=== PATIENT | female | born 1960 | race Caucasian/White ===

== ENCOUNTER 2018-11-10 13:15 | Observation (INO) ==
[2018-11-10] MEDS ORDERED: Ipratropium/Albuterol Neb 3 ML IH ONE (13:27)
[2018-11-10] MEDS ORDERED: cefTRIAXone 1,000 MG in 0.9 % Sodium Chloride Mini Bag 100 ML IVPB ONE (14:00)
[2018-11-10] MEDS ORDERED: Azithromycin 500 MG in D5% in Water 250 ML IVPB ONE (14:00)
[2018-11-10 14:01] LABS: Basophils % 0.4 %; Eosinophils % 0.1 %; Hematocrit 48.5 % (35.3-44.9); Hemoglobin 12.7 g/dL (11.5-15.4); Immature Granulocytes % 2.7 % (0-4); Lymphocytes # 0.3 K/mcL (0.6-4.6); Lymphocytes % 3.6 %; Mean Corpuscular HGB Conc 26.2 g/dL (31.6-35.5); Mean Corpuscular Hemoglobin 19.6 pg (28.0-33.3); Mean Corpuscular Volume 74.7 fL (83.0-100.0); Monocytes # 0.5 K/mcL (0.0-1.3); Monocytes % 7.7 %; Platelet Count 128 K/mcL (140-400); Red Blood Count 6.49 M/mcL (3.82-4.97); Red Cell Distribution Width 21.8 % (11.5-14.5); Segmented Neutrophils % 85.5 %
--- NOTE | 2018-11-10 14:06 | Emergency Department Note ---
Disposition Clinical Impression: Acute exacerbation of chronic obstructive airways disease, Community acquired pneumonia Disposition: Admitted As Inpatient Condition: Fair Referrals: NONE,PCP [Primary Care Provider] - Forms: ED Satisfaction Letter Time of Disposition: 15:40 SOB HPI - General Chief Complaint: ED Shortness of Breath/Dyspnea Stated Complaint: sob Time Seen by Provider: 11/10/18 13:30 Source: patient, EMS Mode of arrival: ambulatory Limitations: no limitations Nursing Notes Reviewed: Yes Vital Signs Reviewed: Yes - History of Present Illness 58-year-old female who presents versus had increasing stress breath cough congestion she has had low-grade fever she had no apnea and no cyanosis she denies any diarrhea melena hematochezia hematemesis numbness tingling weakness recent E gain or weight lossoversite dr Fink Pt Subjective Complaint: shortness of breath Onset (ago): hour(s) Context: recent illness Severity: severe Consistency/Duration: constant Improves with: oxygen, bronchodilators Worsens with: exertion Known history of: COPD, recurrent pneumonia Associated symptoms: Reports: fever, cough, sputum production. Denies: chest pain, pain with inspiration, wheezing, orthopnea, lower extremity pain, polyuria, polydipsia, parasthesias, palpitations, hemoptysis, diaphoresis, nausea/vomiting, syncope, abdominal pain, rash, sense of impending doom Treatment prior to arrival: oxygen, bronchodilator, other (BiPap) Cough present: No Sputum production: No - Related Data Home Medications Medication Instructions Recorded Confirmed Levothyroxine [Synthroid] 100 mcg PO 0630 03/04/15 11/10/18 Albuterol Sulfate [Proair 2 puff PO Q6H PRN 07/21/15 11/10/18 Respiclick] Furosemide [Lasix] 20 mg PO DAILY 07/21/15 10/18/17 Lisinopril [Zestril] 10 mg PO DAILY 07/21/15 11/10/18 Metformin HCl [Glucophage] 1,000 mg PO BID 07/21/15 11/10/18 Multivit-Min/Iron Fum/Folic AC 1 each PO DAILY 07/21/15 11/10/18 [Yqezp-Mhncprz-Oarepvnm Tablet] Sertraline [Zoloft] 1.5 tab PO DAILY 07/21/15 11/10/18 Simvastatin [Zocor] 20 mg PO HS 07/21/15 11/10/18 SitaGLIPtin [Januvia] 100 mg PO DAILY 07/21/15 11/10/18 amLODIPine [Norvasc] 5 mg PO DAILY 07/21/15 10/18/17 ALPRAZolam [Xanax 1 MG Tablet] 1 mg PO TID 07/07/16 11/10/18 Previous Rx's Medication Instructions Recorded Oxybutynin [Ditropan] 5 mg PO QID #120 tablet 07/07/16 Desitin (Zinc Oxide) [Desitin] 1 appl TP Q4H PRN #1 tube 11/10/16 Ferrous Sulfate [Iron] 325 mg PO DAILY #30 tablet 06/10/17 Ascorbic Acid [C-500] 500 mg PO DAILY #30 tablet 08/20/17 Loperamide [Imodium] 4 mg PO BID #60 capsule 12/12/17 Allergies Allergy/AdvReac Type Severity Reaction Status Date / Time No Known Allergies Allergy Verified 04/04/17 14:49 All systems ED: reviewed and negative except as stated. Review of Systems: As Per HPI Constitutional: Reports: fever. Denies: chills, weakness Eyes: Denies: eye pain, eye discharge ENT ED: Denies: ear pain, throat pain Cardiovascular: Reports: dyspnea on exertion. Denies: chest pain, palpitations Respiratory: Reports: cough, dyspnea, wheezes, sputum production Gastrointestinal: Denies: abdominal pain, nausea Genitourinary: Denies: urgency, dysuria, frequency Musculoskeletal: Denies: back pain, neck pain Integumentary: Denies: rash Neurological: Denies: headache Psychiatric: Denies: anxiety Endocrine: Denies: fatigue Hematological/Lymphatic: Denies: easy bleeding Allergic/Immunologic: Denies: facial swelling Past Medical History - Past Medical History Attestation: Yes The following information was validated with the patient. Source: patient, old records reviewed, nursing notes reviewed Medical history: Reports: arthritis, asthma, cancer, CHF, COPD, diabetes, GERD, hyperlipidemia, hypertension, kidney stones, migraine, thyroid disease, other Surgical history: Reports: hysterectomy Psychiatric history: Reports: anxiety - Social History Smoking Status: Current every day smoker Smokeless Tobacco Status: No Alcohol use: Reports: none Drug use: Reports: none Physical Exam - General Limitations: no limitations General appearance: alert, in no apparent distress, anxious, obese - Head Head exam: atraumatic, normocephalic, normal inspection - Eye Eye exam: Present: normal appearance, PERRL, EOMI - ENT ENT exam: normal exam, normal oropharynx, mucous membranes moist, TM's normal bilaterally, normal external ear exam - Neck Neck exam: Present: normal inspection, full ROM, trachea midline - Chest Chest inspection: Present: normal inspection, symmetric chest wall rise - Respiratory Respiratory exam: Present: prolonged expiratory phase, other (Rhonci and no rales) - Cardiovascular Cardiovascular exam: Present: regular rate, normal rhythm, normal heart sounds - Abdominal Exam Abdominal exam: Present: soft, Non-Tender, normal bowel sounds. Absent: mass, pulsatile mass - Extremities Exam Extremities exam: Present: normal inspection, full ROM, normal capillary refill. Absent: tenderness, pedal edema, joint swelling, calf tenderness - Expanded Lower Extremity Exam Neurovascular/Tendon exam: Present: normal capillary refill, normal fine/light touch Gait: observed and normal - Back Exam Back exam: Present: normal inspection, full ROM. Absent: muscle spasm - Neurological Exam Neurological exam: Present: alert, oriented X3, CN II-XII intact, normal gait - Psychiatric Psychiatric exam: Present: normal affect, normal mood - Skin Skin exam: Present: warm, dry, intact, normal color Course Course Narrative: Patient seen and examined patient was maintained on BiPAP given multiple aerosol treatments did show some improvement spoke with Dr. Arevalo will have her admitted transfer to [facility] patient was septic by criteria but not septic by laboratory data patient be transferred to [facility] on IV antibiotics Vital Signs Temperature 97.4 F L 11/10/18 13:26 Pulse Rate 92 11/10/18 13:26 Respiratory Rate 26 11/10/18 13:26 Blood Pressure 122/71 11/10/18 13:26 O2 Sat by Pulse Oximetry 97 11/10/18 13:26 Temperature 97.4 F L 11/10/18 13:35 Pulse Rate 85 11/10/18 15:31 Respiratory Rate 23 11/10/18 15:31 Blood Pressure 104/67 11/10/18 15:31 O2 Sat by Pulse Oximetry 88 11/10/18 15:31 Oxygen Delivery Oxygen Delivery Simple Mask Shortness of Breath/Dyspnea - Differential Diagnosis Likely: acute exacerbation of chronic obstructive airways disease, pneumonia, pulmonary embolism - Medical Records Medical records reviewed: Yes I reviewed the patient's medical records. - Lab Data Lab results reviewed: Yes I reviewed the patient's lab results. Result diagrams: 11/10/18 13:48 11/10/18 13:48 Lab Results 11/10/18 11/10/18 11/10/18 Range/Units 13:48 13:48 13:48 WBC 7.0 (4.3-11.1) K/mcL RBC 6.49 H (3.82-4.97) M/mcL Hgb 12.7 (11.5-15.4) g/dL Hct 48.5 H (35.3-44.9) % MCV 74.7 L (83.0-100.0) fL MCH 19.6 L (28.0-33.3) pg MCHC 26.2 L (31.6-35.5) g/dL RDW 21.8 H (11.5-14.5) % Plt Count 128 L (140-400) K/mcL Immature Gran % 2.7 (0-4) % Seg Neutrophils % 85.5 % Lymphocytes % 3.6 % Monocytes % 7.7 % Eosinophils % 0.1 % Basophils % 0.4 % Neutrophils # 6.0 (1.6-8.9) K/mcL Lymphocytes # 0.3 L (0.6-4.6) K/mcL Monocytes # 0.5 (0.0-1.3) K/mcL Eosinophils # 0.0 (0.0-0.6) K/mcL Basophils # 0.0 (0.0-0.2) K/mcL Nucleated RBCs/100 WBC 1.0 H (0) /100 WBC Platelet Estimate Normal (Normal) Polychromasia 1+ A (Not Present) Hypochromasia Present A (Not Present) Anisocytosis 1+ A (Not Present) Microcytosis Present A (Not Present) Sodium 137 (136-145) mEq/L Potassium 4.8 (3.5-5.1) mEq/L Chloride 96 L (98-107) mEq/L Carbon Dioxide 38 H (23-29) mEq/L BUN 25 H (6-20) mg/dL Creatinine 0.76 (0.60-1.20) mg/dL Est GFR ( Amer) > 60 (> 60) Est GFR (Non-Af Amer) > 60 (> 60) BUN/Creatinine Ratio 33 H (6-26) Glucose 258 H (70-105) mg/dL Calculated Osmolality 297 (280-300) Lactic Acid 0.8 (0.5-2.2) mmol/L Calcium 8.8 (8.6-10.3) mg/dL Troponin I 0.03 (< 0.04) ng/mL B-Natriuretic Peptide (Less than 100) pg/mL 11/10/18 Range/Units 13:48 WBC (4.3-11.1) K/mcL RBC (3.82-4.97) M/mcL Hgb (11.5-15.4) g/dL Hct (35.3-44.9) % MCV (83.0-100.0) fL MCH (28.0-33.3) pg MCHC (31.6-35.5) g/dL RDW (11.5-14.5) % Plt Count (140-400) K/mcL Immature Gran % (0-4) % Seg Neutrophils % % Lymphocytes % % Monocytes % % Eosinophils % % Basophils % % Neutrophils # (1.6-8.9) K/mcL Lymphocytes # (0.6-4.6) K/mcL Monocytes # (0.0-1.3) K/mcL Eosinophils # (0.0-0.6) K/mcL Basophils # (0.0-0.2) K/mcL Nucleated RBCs/100 WBC (0) /100 WBC Platelet Estimate (Normal) Polychromasia (Not Present) Hypochromasia (Not Present) Anisocytosis (Not Present) Microcytosis (Not Present) Sodium (136-145) mEq/L Potassium (3.5-5.1) mEq/L Chloride (98-107) mEq/L Carbon Dioxide (23-29) mEq/L BUN (6-20) mg/dL Creatinine (0.60-1.20) mg/dL Est GFR ( Amer) (> 60) Est GFR (Non-Af Amer) (> 60) BUN/Creatinine Ratio (6-26) Glucose (70-105) mg/dL Calculated Osmolality (280-300) Lactic Acid (0.5-2.2) mmol/L Calcium (8.6-10.3) mg/dL Troponin I (< 0.04) ng/mL B-Natriuretic Peptide 185 H (Less than 100) pg/mL - Radiology Data Radiology results reviewed: Yes I reviewed the patient's radiology results. ITS Impressions Chest X-Ray 11/10/18 13:28 IMPRESSION: Focal infiltrate right lung base. D/ / 11/10/2018 13:54:44 Jhonatan Portillo MD / bcarter Interpreting Provider: Jhonatan Portillo MD - EKG Data EKG attestation: Yes I reviewed and interpreted this EKG. EKG results narrative: Sinus rhythm rate 87 LA 152 QRS 80 QT 353 access 143 Critical Care Time Critical Care Time: No Sepsis Event Note - Evaluation Sepsis Screen: No Definite Risk Current Stage of Suspected Sepsis: ruled out Reason for ruling out sepsis: Lactic is normal white count is normal Possible Source of Sepsis: pulmonary - Focused Exam Date of Encounter: 11/10/18 Time of Encounter: 15:05 Vital Signs: Vital Signs Temp Pulse Resp BP Pulse Ox 11/10/18 15:31 85 23 104/67 88 11/10/18 15:02 84 24 106/62 93 11/10/18 14:29 89 21 92 11/10/18 14:14 18 93 11/10/18 13:56 87 26 110/59 98 11/10/18 13:35 97.4 F L 92 26 122/71 10 11/10/18 13:32 10 11/10/18 13:26 97.4 F L 92 26 122/71 97 Respiratory Exam: Present: rhonchi Cardiovascular Exam: Present: RRR Capillary Refill: < 2 seconds Peripheral Pulse Strength: 3+ normal Peripheral Pulse Location: Radial Skin Exam: normal turgor - Bedside Monitoring Bedside Ultrasound Performed: No Passive Leg raise/fluid bolus: not performed
[2018-11-10 14:19] LABS: BUN/Creatinine Ratio 33 (6-26); Blood Urea Nitrogen 25 mg/dL (6-20); Calcium 8.8 mg/dL (8.6-10.3); Carbon Dioxide 38 mEq/L (23-29); Chloride 96 mEq/L (98-107); Glucose 258 mg/dL (70-105); Osmolality,Calculated 297 (280-300); Potassium 4.8 mEq/L (3.5-5.1); Sodium 137 mEq/L (136-145); eGFR For Non-African Americans > 60 (> 60)
[2018-11-10 14:20] LABS: Troponin I 0.03 ng/mL (< 0.04)
[2018-11-10 14:51] LABS: Anisocytosis 1+ (Not Present); Hypochromasia Present (Not Present); Platelet Estimate Normal (Normal); Polychromasia 1+ (Not Present)
[2018-11-10 14:52] LABS: Microcytosis Present (Not Present)
[2018-11-10] MEDS ORDERED: ALPRAZolam 0.5 MG TABLET PO STA (15:12)
[2018-11-10] MEDS ORDERED: (Albuterol Sulfate [Proair Respiclick] 2 PUFF) PO PRN (19:34)
[2018-11-10] MEDS ORDERED: Naloxone 0.4 MG/ML INJ IVP PRN (19:34)
[2018-11-10] MEDS ORDERED: Desitin (Zinc Oxide) 56 GM TUBE TP PRN (19:34)
[2018-11-10] MEDS: *HR* Metformin 500 MG TABLET PO SCH (21:09)
[2018-11-10] MEDS: ALPRAZolam 1 MG TABLET PO SCH (21:09)
[2018-11-11] MEDS: Albuterol 2.5 MG/3 ML NEBULIZER IH PRN ×2 (03:40→13:36)
[2018-11-11] MEDS: predniSONE 20 MG TABLET PO SCH ×2 (03:54→17:48)
[2018-11-11 05:27] LABS: Basophils # 0.1 K/mcL (0.0-0.2); Basophils % 0.9 %; Eosinophils % 0.5 %; Hematocrit 49.6 % (35.3-44.9); Hemoglobin 12.5 g/dL (11.5-15.4); Immature Granulocytes % 2.1 % (0-4); Lymphocytes # 1.1 K/mcL (0.6-4.6); Lymphocytes % 16.3 %; Mean Corpuscular HGB Conc 25.2 g/dL (31.6-35.5); Mean Corpuscular Hemoglobin 19.5 pg (28.0-33.3); Mean Corpuscular Volume 77.4 fL (83.0-100.0); Monocytes # 0.9 K/mcL (0.0-1.3); Monocytes % 13.6 %; Neutrophils # 4.4 K/mcL (1.6-8.9); Nucleated Red Blood Cells 0.8 /100 WBC (0); Platelet Count 108 K/mcL (140-400); Red Blood Count 6.41 M/mcL (3.82-4.97); Red Cell Distribution Width 21.7 % (11.5-14.5); Segmented Neutrophils % 66.6 %
[2018-11-11 06:00] LABS: BUN/Creatinine Ratio 33 (6-26); Blood Urea Nitrogen 20 mg/dL (6-20); Calcium 8.9 mg/dL (8.6-10.3); Carbon Dioxide 34 mEq/L (23-29); Chloride 96 mEq/L (98-107); Glucose 163 mg/dL (70-105); Osmolality,Calculated 294 (280-300); Potassium 4.7 mEq/L (3.5-5.1); Sodium 139 mEq/L (136-145); eGFR For Non-African Americans > 60 (> 60)
[2018-11-11 06:47] LABS: Anisocytosis 1+ (Not Present)
[2018-11-11 06:48] LABS: Hypochromasia Present (Not Present); Platelet Estimate Slight Decrease (Normal)
[2018-11-11] MEDS: Ascorbic Acid 500 MG TABLET PO SCH (08:38)
[2018-11-11] MEDS: *HR* Metformin 500 MG TABLET PO SCH ×2 (08:38→17:48)
[2018-11-11] MEDS: *HR* SitaGLIPtin 25 MG TABLET PO SCH (08:38)
[2018-11-11] MEDS: Furosemide 20 MG TABLET PO SCH (08:39)
[2018-11-11] MEDS: ALPRAZolam 1 MG TABLET PO SCH ×4 (08:39→21:05)
[2018-11-11] MEDS: amLODIPine 5 MG TABLET PO SCH (08:39)
[2018-11-11] MEDS: Multivit/Ca/Min/Fe/FA 1 TAB TABLET PO SCH (08:39)
[2018-11-11] MEDS: cefTRIAXone 1,000 MG in Water for inj. (sterile) 20 ML 10 ML IVP SCH (08:40)
--- NOTE | 2018-11-11 09:52 | Internal Med History&Physical ---
Date of Encounter: 11/11/18 Time of Encounter: 09:25 Assessment and Plan (1) Pneumonia Current visit: No Status: Acute She was started on Rocephin and Zithromax in emergency room. Lactobacillus will be added Qualifiers: Pneumonia type: due to unspecified organism Laterality: left Lung location: lower lobe of lung Qualified Code(s): J18.1 - Lobar pneumonia, unspecified organism (2) Acute exacerbation of chronic obstructive airways disease Current visit: Yes Status: Acute Pneumonia treatment as per above. Start Symbicort, duonebs, prednisone and Singulair. (3) Microcytosis Current visit: No Status: Chronic Iron profile will be done to further evaluate (4) Hypertension Current visit: No Status: Chronic Continue lisinopril, Norvasc, and Lasix Qualifiers: Hypertension type: essential hypertension Qualified Code(s): I10 - Essential (primary) hypertension (5) DM type 2 (diabetes mellitus, type 2) Current visit: No Status: Chronic Continue metformin and Januvia. Check hemoglobin A1c in a.m. Qualifiers: Diabetes mellitus oysterman insulin use: without oysterman use Diabetes mellitus complication status: with unspecified complications Qualified Code(s): E11.8 - Type 2 diabetes mellitus with unspecified complications (6) Hypothyroidism Current visit: No Status: Chronic Check TSH. Qualifiers: Hypothyroidism type: unspecified Qualified Code(s): E03.9 - Hypothyroidism, unspecified (7) Sleep apnea Current visit: No Status: Chronic Continue CPAP/BiPAP. Qualifiers: Sleep apnea type: unspecified type Qualified Code(s): G47.30 - Sleep apnea, unspecified Internal Medicine - H&P: HPI Chief complaint: Cough and dyspnea Admitted From: Emergency Dept Plans for Post Hospital Care: Home History of present illness: Ms. Mccracken is a 58 year old female who came to emergency room complaining of nonproductive cough and increased dyspnea over the preceding week. She reports fever up to 100 F. She denies pain vomiting or diarrhea. She states a close contact has similar symptoms. She was evaluated in emergency room and was found to have right lower lobe pneumonia. She was admitted to [facility] floor for ongoing care needs. Her respiratory history is significant for having smoked since age 12 up to 2 packs per day. She has a diagnosis of COPD. She has NILS and uses CPAP/BiPAP with oxygen at bedtime and when necessary during the daytime. Past Med Surg Social Fam HX - Past Medical History Medical history: arthritis, asthma, cancer, CHF, COPD, diabetes, GERD, hype rlipidemia, hypertension, kidney stones, migraine, thyroid disease, other Additional medical history: cancer:ovarian and uterine Psychiatric history: anxiety, depression - Past Surgical History Surgical History: hysterectomy Additional surgical history: port placement right chest. - Social History Smoking Status: Current every day smoker Smokeless Tobacco Status: No Alcohol use: none Drug use: none - Family History Sister History Unknown: Yes Adopted: Yes Name: Tracy Age: 68 Family Member Ethnicity: Non- Living Status: Still Living Hx Family Cardiac Disorders: Yes Hx Family Respiratory Disorders: No Hx Family Cancer: No Hx Family GI Disorders: No Hx Family Genitourinary Disorders: No Hx Family Endocrine Disorder: No Hx Family Musculoskeletal Disorders: No Hx Family Neuromuscular Disorders: No Hx Family Neurologic Disorders: No Hx Family HEENT Disorders: No Hx Family Autoimmune Disorders: No Hx Family Reproductive Disorders: No Hx Family Psychosocial Disorders: No Hx Family Medical Disorders: No Internal Medicine - H&P: Meds Levothyroxine [Synthroid] 137 mcg PO 0630 03/04/15 [History] Albuterol Sulfate [Proair Respiclick] 2 puff PO Q6H PRN 07/21/15 [History] Furosemide [Lasix] 20 mg PO DAILY 07/21/15 [History] Lisinopril [Zestril] 10 mg PO DAILY 07/21/15 [History] Metformin HCl [Glucophage] 1,000 mg PO BID 07/21/15 [History] Multivit-Min/Iron Fum/Folic AC [Yoeyc-Fuxumue-Zsqfihyf Tablet] 1 each PO DAILY 07/21/15 [History] Sertraline [Zoloft] 1.5 tab PO DAILY 07/21/15 [History] Simvastatin [Zocor] 20 mg PO HS 07/21/15 [History] SitaGLIPtin [Januvia] 100 mg PO DAILY 07/21/15 [History] amLODIPine [Norvasc] 5 mg PO DAILY 07/21/15 [History] ALPRAZolam [Xanax 1 MG Tablet] 1 mg PO TID 07/07/16 [History] Oxybutynin [Ditropan] 5 mg PO QID #120 tablet 07/07/16 [Rx] Loperamide [Imodium] 4 mg PO BID #60 capsule 12/12/17 [Rx] Pantoprazole Sodium [Protonix] 40 mg PO DAILY 11/10/18 [History] Tramadol HCl [Ultram] 100 mg PO QID PRN 11/10/18 [History] Allergy/AdvReac Type Severity Reaction Status Date / Time No Known Allergies Allergy Verified 04/04/17 14:49 All Systems PM: A 10-system review of systems was performed and is negative for pertinent findings except as documented above in the HPI. Review of systems: Review of systems from her August 2017 [facility] hospitalization were reviewed and revised as below. Gen.: Her weight is increased 125.418 kg August 2017 to present weight of 144.242 kg. Cardiovascular: She has history of hypertension but denies [place] heart failure angina DVT or pulmonary embolus Respiratory: As per history of present illness. GI: She denies disorders of her liver gallbladder or exocrine pancreas : She has had kidney stones in the past. She denies other kidney or bladder disorders. Neurologic: She denies large distribution strokes or seizures. Endocrine: She has hypothyroidism and hyperlipidemia. She states she was diagnosed with DM 2 in 1997. Hematology/oncology: She had ovarian cancer diagnosed in 2013. She had CHARLIE/BSO which apparently was curative. She was found to have microcytosis and thrombocytopenia without anemia during her August 2017 hospitalization. She was diagnosed with iron deficiency and was started on ferrous sulfate with ascorbic acid with discontinuation of PPI. She states she no longer takes ferrous sulfate or ascorbic acid and has restarted PPI. Psychiatric: She has anxiety and depression but denies other mental health issues Musculoskeletal: She has DJD but denies gout or other bone joint or muscle disorders. - Constitutional Vitals: Temp Pulse Resp BP Pulse Ox 98.6 F 85 18 112/66 93 11/11/18 06:37 11/11/18 06:37 11/11/18 06:37 11/11/18 06:37 11/11/18 06:37 Exam: Gen.: She is a well-developed morbidly obese female lying in bed who appears dyspneic. She is able to converse. HEENT: Head is atraumatic and normal cephalic. Eyes: EOMI. There is no scleral icterus. Mouth: Mucosa is moist. Neck: Supple and nontender. There is no thyromegaly or adenopathy noted. Heart: Regular without murmurs gallops or ectopics Lungs: There are no wheezes or crackles heard. She has egophony in the right base posteriorly. Abdomen: She has a massive pannus. No masses or guarding are noted. Extremities: There is no cyanosis edema or clubbing noted. Dorsalis pedis and posterior tibial pulses are trace palpable bilaterally. Neurologic: Mental status: She is talkative and a good historian. Cranial nerves: Smile is symmetric. Forehead wrinkles bilaterally. Tongue protrudes midline. EOMI. Motor: There is no pronator drift. Cerebellar: Finger to nose is intact bilaterally. Skin: Warm and dry Internal Med - H&P Results - Labs CBC & Chem 7: 11/11/18 03:45 11/11/18 03:45 Labs: Short CBC 11/10/18 11/11/18 Range/Units 13:48 03:45 WBC 7.0 6.6 (4.3-11.1) K/mcL Hgb 12.7 12.5 (11.5-15.4) g/dL Hct 48.5 H 49.6 H (35.3-44.9) % Plt Count 128 L 108 L (140-400) K/mcL Neutrophils # 6.0 4.4 (1.6-8.9) K/mcL BMP 11/10/18 11/11/18 13:48 03:45 Sodium 137 139 Potassium 4.8 4.7 Chloride 96 L 96 L Carbon Dioxide 38 H 34 H BUN 25 H 20 Creatinine 0.76 0.60 Glucose 258 H 163 H Calcium 8.8 8.9 Cardiac Enzymes 11/10/18 Range/Units 13:48 Troponin I 0.03 (< 0.04) ng/mL - Impressions ITS Impressions Chest X-Ray 11/10/18 13:28 IMPRESSION: Focal infiltrate right lung base. D/ / 11/10/2018 13:54:44 Jhonatan Portillo MD / bcarter Interpreting Provider: Jhonatan Portillo MD
[2018-11-11] MEDS: Ipratropium/Albuterol Neb 3 ML IH SCH ×3 (11:01→22:11)
[2018-11-11] MEDS: Budesonide/Formoterol 160/4.5 1 PUFF INH IH SCH ×2 (11:01→22:11)
[2018-11-11] MEDS: Azithromycin 500 MG in D5% in Water 250 ML IVPB SCH (14:22)
[2018-11-11 20:55] LABS: % Iron Saturation 3 % (15-50); Iron 16 mcg/dL (50-170); Transferrin 338 mg/dL (203-362)
[2018-11-11] MEDS: Lactobacillus 1 EACH CAP.SPRINK PO SCH (20:59)
[2018-11-11 21:14] LABS: Ferritin 12 ng/mL (10-120)
[2018-11-11 21:20] LABS: Folate 17.7 ng/mL (3.0-16.0)
[2018-11-12] MEDS: Ipratropium/Albuterol Neb 3 ML IH SCH (04:58)
[2018-11-12] MEDS: Ascorbic Acid 500 MG TABLET PO SCH (05:59)
[2018-11-12 07:40] LABS: Basophils % 0.3 %; Hematocrit 44.4 % (35.3-44.9); Hemoglobin 11.4 g/dL (11.5-15.4); Immature Granulocytes % 2.1 % (0-4); Lymphocytes # 0.4 K/mcL (0.6-4.6); Lymphocytes % 6.5 %; Mean Corpuscular HGB Conc 25.7 g/dL (31.6-35.5); Mean Corpuscular Hemoglobin 19.4 pg (28.0-33.3); Mean Corpuscular Volume 75.5 fL (83.0-100.0); Monocytes # 0.3 K/mcL (0.0-1.3); Monocytes % 4.6 %; Neutrophils # 5.1 K/mcL (1.6-8.9); Nucleated Red Blood Cells 0.7 /100 WBC (0); Platelet Count 131 K/mcL (140-400); Red Blood Count 5.88 M/mcL (3.82-4.97); Red Cell Distribution Width 21.3 % (11.5-14.5); Segmented Neutrophils % 86.5 %
[2018-11-12] MEDS: cefTRIAXone 1,000 MG in Water for inj. (sterile) 20 ML 10 ML IVP SCH (08:50)
[2018-11-12] MEDS: *HR* SitaGLIPtin 25 MG TABLET PO SCH (08:50)
[2018-11-12] MEDS: amLODIPine 5 MG TABLET PO SCH ×2 (08:50→12:17)
[2018-11-12] MEDS: Multivit/Ca/Min/Fe/FA 1 TAB TABLET PO SCH (08:50)
[2018-11-12] MEDS: ALPRAZolam 1 MG TABLET PO SCH ×3 (08:50→20:12)
[2018-11-12] MEDS: Furosemide 20 MG TABLET PO SCH ×2 (08:51→12:15)
[2018-11-12] MEDS: *HR* Metformin 500 MG TABLET PO SCH ×2 (08:51→17:39)
[2018-11-12] MEDS: predniSONE 20 MG TABLET PO SCH ×2 (08:51→17:39)
[2018-11-12] MEDS: Lactobacillus 1 EACH CAP.SPRINK PO SCH ×2 (08:51→20:11)
[2018-11-12 09:36] LABS: Anisocytosis 1+ (Not Present); Hypochromasia Present (Not Present); Microcytosis Present (Not Present); Platelet Estimate Normal (Normal); Polychromasia 1+ (Not Present)
--- NOTE | 2018-11-12 09:39 | Internal Med Progress Note ---
Date of Encounter: 11/12/18 Time of Encounter: 09:31 - Assessment and plan (1) Pneumonia Current Visit: No Status: Acute Assessment and plan: November 12. Continue Rocephin and Zithromax with lactobacillus. Anticipate discharge home tomorrow if stable. Qualifiers: Pneumonia type: due to unspecified organism Laterality: left Lung location: lower lobe of lung Qualified Code(s): J18.1 - Lobar pneumonia, unspecified organism (2) Acute exacerbation of chronic obstructive airways disease Current Visit: Yes Status: Acute Assessment and plan: November 12. Continue present Rx. (3) Microcytosis Current Visit: No Status: Chronic Assessment and plan: November 12. Anemia testing showed iron 16, transferrin saturation 3%, transferrin 3 and 33, ferritin 12, B12 334, and folate 17.7. Hemoglobin has decreased to 11.4. Start ferrous sulfate with ascorbic acid (4) Hypertension Current Visit: No Status: Chronic Assessment and plan: November 12. Blood pressure borderline low. Hold amlodipine and lisinopril. Qualifiers: Hypertension type: essential hypertension Qualified Code(s): I10 - Essentia l (primary) hypertension (5) DM type 2 (diabetes mellitus, type 2) Current Visit: No Status: Chronic Assessment and plan: November 12. Hemoglobin A1c pending. Qualifiers: Diabetes mellitus senior living insulin use: without exterminator helper use Diabetes mellitus complication status: with unspecified complications Qualified Code(s): E11.8 - Type 2 diabetes mellitus with unspecified complications (6) Hypothyroidism Current Visit: No Status: Chronic Assessment and plan: November 12. TSH ordered. Qualifiers: Hypothyroidism type: unspecified Qualified Code(s): E03.9 - Hypothyroidism, unspecified (7) Sleep apnea Current Visit: No Status: Chronic Assessment and plan: November 12. Continue CPAP/BiPAP. Qualifiers: Sleep apnea type: unspecified type Qualified Code(s): G47.30 - Sleep apnea, unspecified - Subjective Interval history: November 12. She has no new complaints. She does not feel her breathing has improved. - Constitutional Vitals: Temp Pulse Resp BP Pulse Ox 98.3 F 82 18 95/56 91 11/12/18 06:15 11/12/18 06:15 11/12/18 06:15 11/12/18 06:15 11/12/18 06:15 Exam: She is lying in bed and appears less dyspneic than yesterday. Oxygen saturation his improved to 91-94%. I reviewed her medications and lab results. Internal Medicine: Result - Labs CBC & Chem 7: 11/12/18 07:28 11/11/18 03:45 Labs: Short CBC 11/12/18 Range/Units 07:28 WBC 5.8 (4.3-11.1) K/mcL Hgb 11.4 L (11.5-15.4) g/dL Hct 44.4 (35.3-44.9) % Plt Count 131 L (140-400) K/mcL Consult Discharge Plan - Plan Referrals: NONE,PCP [Primary Care Provider] - 1 week
[2018-11-12 09:44] LABS: Alanine Aminotransferase 6 Units/L (7-52); Albumin 3.5 g/dL (3.5-5.7); Albumin/Globulin Ratio 1.2 (1.1-2.2); Alkaline Phosphatase 61 Units/L (34-104); Aspartate Amino Transferase 7 Units/L (13-39); BUN/Creatinine Ratio 36 (6-26); Bilirubin,Total 0.4 mg/dL (0.3-1.0); Blood Urea Nitrogen 27 mg/dL (6-20); Calcium 8.9 mg/dL (8.6-10.3); Carbon Dioxide 38 mEq/L (23-29); Chloride 95 mEq/L (98-107); Globulin 2.9 g/dL (2.4-3.5); Glucose 217 mg/dL (70-105); Osmolality,Calculated 294 (280-300); Potassium 5.1 mEq/L (3.5-5.1); Sodium 136 mEq/L (136-145); Total Protein 6.4 g/dL (6.4-8.9); eGFR For Non-African Americans > 60 (> 60)
[2018-11-12] MEDS: Budesonide/Formoterol 160/4.5 1 PUFF INH IH SCH ×2 (10:16→20:22)
[2018-11-12] MEDS: Albuterol 2.5 MG/3 ML NEBULIZER IH PRN ×2 (14:18→20:23)
[2018-11-12] MEDS: Azithromycin 500 MG in D5% in Water 250 ML IVPB SCH (17:39)
[2018-11-12 19:56] LABS: ABG Base Excess 9 mEq/L (-2 to 3); ABG HCO3 39 mEq/L (21-27); ABG Oxygen Saturation 92 % (95-98); ABG PCO2 84 mmHg (35-45); ABG PH 7.28 pH Units (7.32-7.45); ABG PO2 75 mmHg (85-104); ABG TCO2 42 mEq/L (20-26)
[2018-11-13] MEDS ORDERED: Ascorbic Acid 500 MG TABLET PO SCH (06:30)
[2018-11-13 07:08] VITALS: BP 124/66
[2018-11-13] MEDS: *HR* Metformin 500 MG TABLET PO SCH (07:54)
[2018-11-13] MEDS: ALPRAZolam 1 MG TABLET PO SCH (07:54)
[2018-11-13] MEDS: *HR* SitaGLIPtin 25 MG TABLET PO SCH (07:54)
[2018-11-13] MEDS: predniSONE 20 MG TABLET PO SCH (07:55)
[2018-11-13] MEDS: Furosemide 20 MG TABLET PO SCH (07:55)
[2018-11-13] MEDS: Multivit/Ca/Min/Fe/FA 1 TAB TABLET PO SCH (07:55)
[2018-11-13] MEDS: cefTRIAXone 1,000 MG in Water for inj. (sterile) 20 ML 10 ML IVP SCH (07:55)
[2018-11-13] MEDS: Lactobacillus 1 EACH CAP.SPRINK PO SCH (07:55)
[2018-11-13 09:53] LABS: Estimated Average Glucose 171 mg/dl; Hemoglobin A1C 7.6 %
--- NOTE | 2018-11-13 09:56 | Discharge Summary ---
Orders not resulted at time of discharge: Pending orders 11/10/18 13:48 Culture,Blood [BC] Stat 11/12/18 07:28 Hgb A1C AM 0400 Date of Encounter: 11/13/18 Time of Encounter: 09:35 - Discharge Diagnosis (1) Pneumonia Priority: Primary Status: Acute Qualifiers: Pneumonia type: due to unspecified organism Laterality: left Lung location: lower lobe of lung Qualified Code(s): J18.1 - Lobar pneumonia, unspecified organism (2) Acute exacerbation of chronic obstructive airways disease Priority: Secondary Status: Acute (3) Hypertension Priority: Secondary Status: Chronic Qualifiers: Hypertension type: essential hypertension Qualified Code(s): I10 - Essential (primary) hypertension (4) DM type 2 (diabetes mellitus, type 2) Priority: Secondary Status: Chronic Qualifiers: Diabetes mellitus alf insulin use: without legal entity controller use Diabetes mellitus complication status: with unspecified complications Qualified Code(s): E11.8 - Type 2 diabetes mellitus with unspecified complications (5) Hypothyroidism Priority: Secondary Status: Chronic Qualifiers: Hypothyroidism type: unspecified Qualified Code(s): E03.9 - Hypothyroidism, unspecified (6) Sleep apnea Priority: Secondary Status: Chronic Qualifiers: Sleep apnea type: unspecified type Qualified Code(s): G47.30 - Sleep apnea, unspecified (7) Anemia, iron deficiency Priority: Secondary Status: Chronic Qualifiers: Iron deficiency anemia type: unspecified iron deficiency Qualified Code(s): D50.9 - Iron deficiency anemia, unspecified Hospital course: Ms. Mccracken is a 58 year old female who came to emergency room complaining of nonproductive cough and increased dyspnea over the preceding week. She reports fever up to 100 F. She denies pain vomiting or diarrhea. She states a close contact has similar symptoms. She was evaluated in emergency room and was found to have right lower lobe pneumonia. She was admitted to [facility] floor for ongoing care needs. Initial orders were written by the emergency room physician. I saw her on November 11 and performed a history and physical. She was started on Rocephin and Zithromax. Lactobacillus was added. She was also started on Symbicort and steroids with Singulair. She had significant improvement with oxygen saturation rising to 96% on day of discharge on 2 L cannula. She will continue with antibiotics and probiotics with prednisone for 3 additional days at discharge. I encouraged her strongly to discontinue smoking. She has supplemental oxygen at home. I encouraged her to continue her CPAP/BiPAP use at bedtime. Anemia testing showed iron 16, transferrin saturation 3%, transferrin 338, ferritin 12, B12 334, and folate 17.7. She was started on ferrous sulfate with ascorbic acid. Her PCP can monitor labs. TSH returned normal at 1.935. On November 13 she felt improved and stable for discharge home. She will follow with her PCP Daya Martin CNP within 1 week. - Time Spent with Patient Total time spent providing and/or coordinating discharge services: - Discharge Medications Prescriptions: New Cefuroxime PO [Ceftin] 500 mg PO Q12HR #6 tablet Lactobacillus [Culturelle] 1 each PO BID #6 cap.sprink Ferrous Sulfate 325 mg PO 0630 #30 tablet predniSONE [PredniSONE] 20 mg PO BIDWM #6 tablet Budesonide/Formoterol 160/4.5 [Symbicort 160/4.5] 2 puff IH BIDR #1 inh Ascorbic Acid [Vitamin C] 500 mg PO 0630 #30 tablet Azithromycin [Zithromax] 250 mg PO DAILY #3 tablet Continued Levothyroxine [Synthroid] 137 mcg PO 0630 SitaGLIPtin [Januvia] 100 mg PO DAILY Albuterol Sulfate [Proair Respiclick] 2 puff PO Q6H PRN PRN Reason: Shortness Of Breath Sertraline [Zoloft] 1.5 tab PO DAILY Furosemide [Lasix] 20 mg PO DAILY Metformin HCl [Glucophage] 1,000 mg PO BID Simvastatin [Zocor] 20 mg PO HS Multivit-Min/Iron Fum/Folic AC [Ziuin-Cweovte-Eddbedzr Tablet] 1 each PO DAILY Oxybutynin [Ditropan] 5 mg PO QID #120 tablet ALPRAZolam [Xanax 1 MG Tablet] 1 mg PO TID Loperamide [Imodium] 4 mg PO BID #60 capsule Tramadol HCl [Ultram] 100 mg PO QID PRN PRN Reason: Pain Pantoprazole Sodium [Protonix] 40 mg PO DAILY Discontinued Lisinopril [Zestril] 10 mg PO DAILY amLODIPine [Norvasc] 5 mg PO DAILY Home Medications: Levothyroxine [Synthroid] 137 mcg PO 0630 03/04/15 [History] Albuterol Sulfate [Proair Respiclick] 2 puff PO Q6H PRN 07/21/15 [History] Furosemide [Lasix] 20 mg PO DAILY 07/21/15 [History] Metformin HCl [Glucophage] 1,000 mg PO BID 07/21/15 [History] Multivit-Min/Iron Fum/Folic AC [Kvjpn-Bjziipu-Flhaompg Tablet] 1 each PO DAILY 07/21/15 [History] Sertraline [Zoloft] 1.5 tab PO DAILY 07/21/15 [History] Simvastatin [Zocor] 20 mg PO HS 07/21/15 [History] SitaGLIPtin [Januvia] 100 mg PO DAILY 07/21/15 [History] ALPRAZolam [Xanax 1 MG Tablet] 1 mg PO TID 07/07/16 [History] Oxybutynin [Ditropan] 5 mg PO QID #120 tablet 07/07/16 [Rx] Loperamide [Imodium] 4 mg PO BID #60 capsule 12/12/17 [Rx] Pantoprazole Sodium [Protonix] 40 mg PO DAILY 11/10/18 [History] Tramadol HCl [Ultram] 100 mg PO QID PRN 11/10/18 [History] Ascorbic Acid [Vitamin C] 500 mg PO 0630 #30 tablet 11/13/18 [Rx] Azithromycin [Zithromax] 250 mg PO DAILY #3 tablet 11/13/18 [Rx] Budesonide/Formoterol 160/4.5 [Symbicort 160/4.5] 2 puff IH BIDR #1 inh 11/13/18 [Rx] Cefuroxime PO [Ceftin] 500 mg PO Q12HR #6 tablet 11/13/18 [Rx] Ferrous Sulfate 325 mg PO 0630 #30 tablet 11/13/18 [Rx] Lactobacillus [Culturelle] 1 each PO BID #6 cap.sprink 11/13/18 [Rx] predniSONE [PredniSONE] 20 mg PO BIDWM #6 tablet 11/13/18 [Rx] Allergies/Adverse Reactions: Allergy/AdvReac Type Severity Reaction Status Date / Time No Known Allergies Allergy Verified 04/04/17 14:49 Date of admission: 11/10/18 16:04 Primary care physician: Daya Martin [employer] Consults: 11/10/18 18:29 Consult to Environmental Protection Specialist [CONS] Routine Reason for SW Consult: pt. lives at home and has mobility issues 11/10/18 19:34 Consult to Nurse Navigator [CONS] Routine Comment: 11/12/18 18:14 Consult to Physical Therapy [CONS] Routine Comment: Evaluate, develop and implement POC Reason for Consult: Evaluate, develop and implement POC Does patient have active BEDREST order?: No Is patient medically & hemodynamically stable?: Yes - Constitutional Vitals: Temp Pulse Resp BP Pulse Ox 98.9 F 74 18 124/66 93 11/13/18 07:04 11/13/18 07:04 11/13/18 07:04 11/13/18 07:04 11/13/18 07:04 - Patient Status Disposition: Home, Self-Care Condition: Fair - Discharge Instructions Follow Up With: Daya Martin, [employer] [Advanced Practice Nurse] - 1 week - Diet and Activity Activity: wear oxygen at all times Diet: diabetic diet
--- NOTE | 2018-11-13 10:50 | Electrocardiograph Report ---
[place] [id number] Test Date: 2018-11-10 Pat Name: Joseph Mccracken Department: EDP-11 Room: [facility] Gender: F Awning Hanger: : 1960 Requested By: Zaria Lagos Order Number: [id number] Reading MD: Kirsten Hutchins Measurements Intervals [place] Rate: 87 P: 73 HI: 152 QRS: 143 QRSD: 80 T: 53 QT: 353 QTc: 425 Interpretive Statements Sinus rhythm Low voltage with right axis deviation Consider anterior infarct, old Electronically Signed On 11-13-2018 10:49:22 EDT by Kirsten Hutchins
== END 2018-11-13 12:20 | disposition home or self-care (01) ==
LOC: EMEROOPIK 13:15 → INPPIK 13:15
PROVIDERS: ADMIT Internal Medicine; ATTEND Internal Medicine

== ENCOUNTER 2021-06-20 23:18 | Observation (INO) ==
[2021-06-20] MEDS ORDERED: Ipratropium/Albuterol Neb 3 ML IH ONE (23:55)
[2021-06-20] MEDS ORDERED: methylPREDNISolone 125 MG/2 ML VIAL IVP ONE (23:55)
[2021-06-21 00:49] LABS: Basophils % 0.4 %; Eosinophils % 0.4 %; Hematocrit 47.4 % (35.3-44.9); Immature Granulocytes % 1.1 % (0-4); Lymphocytes # 0.7 K/mcL (0.6-4.6); Lymphocytes % 14.7 %; Mean Corpuscular HGB Conc 31.6 g/dL (31.6-35.5); Mean Corpuscular Hemoglobin 30.6 pg (28.0-33.3); Mean Corpuscular Volume 96.7 fL (83.0-100.0); Mean Platelet Volume 11.6 fL (9.4-12.4); Monocytes # 0.3 K/mcL (0.0-1.3); Monocytes % 7.5 %; Neutrophils # 3.5 K/mcL (1.6-8.9); Red Cell Distribution Width 14.5 % (11.5-14.5); Segmented Neutrophils % 75.9 %; White Blood Count 4.6 K/mcL (4.3-11.1)
[2021-06-21 00:49] LABS: ABG Base Excess 13 mEq/L (-2 to 3); ABG HCO3 45 mEq/L (21-27); ABG Oxygen Saturation 96 % (95-98); ABG PCO2 92 mmHg (35-45); ABG PO2 97 mmHg (85-104); ABG TCO2 48 mEq/L (20-26)
[2021-06-21 00:53] LABS: Platelet Count 81 K/mcL (140-400)
[2021-06-21 01:12] LABS: BUN/Creatinine Ratio 33 (6-26); Blood Urea Nitrogen 17 mg/dL (6-20); Calcium 8.8 mg/dL (8.6-10.3); Chloride 94 mEq/L (98-107); Glucose 236 mg/dL (70-105); Osmolality,Calculated 301 (280-300); Potassium 4.3 mEq/L (3.5-5.1); Sodium 141 mEq/L (136-145); Troponin I < 0.03 ng/mL (< 0.04); eGFR For African Americans > 60 (> 60); eGFR For Non-African Americans > 60 (> 60)
[2021-06-21 01:14] LABS: Carbon Dioxide > 45 mEq/L (23-29)
[2021-06-21 01:18] LABS: Bilirubin,Urine Negative (Negative); Blood,Urine Moderate (Negative); Clarity,Urine Slightly Cloudy (Clear); Glucose,Urine (UA) Normal (Normal); Ketones,Urine Negative (Negative); Leukocyte Esterase,Urine Small (Negative); Nitrite,Urine Positive (Negative); PH,Urine 5.5 pH Units (5.0-8.0); Protein,Urine 30 mg/dL (Neg-Trace); Specific Gravity,Urine 1.025 (1.010-1.025); Urobilinogen,Urine Normal (Normal)
[2021-06-21 01:19] LABS: Color,Urine Light Yellow (Yellow)
[2021-06-21 01:21] LABS: Bacteria,Urine Moderate per hpf (None-Few); Hyaline Casts,Urine Few per lpf (None Seen); Squamous Epithelial Cell,Urine Few per hpf (None-Few)
[2021-06-21 01:24] LABS: Mucus,Urine Few per lpf (None-Few); RBC,Urine 0-3 per hpf (0-3)
[2021-06-21 01:25] LABS: WBC,Urine 15-30 per hpf (0-3)
[2021-06-21 01:34] LABS: Amphetamine Screen,Urine Negative ng/mL (Cutoff=1000); Barbiturate Screen,Urine Negative ng/mL (Cutoff=200); Benzodiazepines Screen,Urine Positive ng/mL (Cutoff=200); Cannabinoid Screen,Urine Negative ng/mL (Cutoff = 50); Cocaine Screen,Urine Negative ng/mL (Cutoff= 300); Opiate Screen,Urine Negative ng/mL (Cutoff=300); Phencyclidine Screen,Urine Negative ng/mL (Cutoff=25)
[2021-06-21] MEDS ORDERED: Naloxone 0.4 MG/ML INJ IVP PRN (04:29)
[2021-06-21] MEDS ORDERED: 0.9 % Sodium Chloride 1,000 ML IVC SCH (04:29)
[2021-06-21] MEDS: Ipratropium/Albuterol Neb 3 ML IH SCH ×5 (06:28→20:35)
[2021-06-21] MEDS ORDERED: Nicotine 21 MG PATCH.TD24 TD SCH (09:00)
[2021-06-21] MEDS ORDERED: Furosemide 20 MG TABLET PO SCH (09:00)
[2021-06-21] MEDS ORDERED: Dextrose Gel 15 GM/37.5 ML TUBE PO PRN ×2 (09:05)
[2021-06-21] MEDS ORDERED: D5% in Water 1,000 ML IVC PRN (09:05)
[2021-06-21] MEDS ORDERED: *HR* Dextrose 50 % in Water (Syg) 50 ML SYRINGE IVP PRN (09:05)
[2021-06-21] MEDS: methylPREDNISolone 125 MG/2 ML VIAL IVP SCH ×2 (11:02→17:24)
[2021-06-21] MEDS: ALPRAZolam 1 MG TABLET PO PRN ×2 (11:04→21:01)
[2021-06-21] MEDS: Insulin LISPRO 300 UNITS/3 ML VIAL SUBQ SCH ×2 (11:21→17:25)
[2021-06-21] MEDS ORDERED: QUEtiapine Fumarate 25 MG TABLET PO SCH (18:00)
[2021-06-21] MEDS ORDERED: Insulin LISPRO 300 UNITS/3 ML VIAL SUBQ SCH (21:00)
[2021-06-22] MEDS: Ipratropium/Albuterol Neb 3 ML IH SCH ×3 (00:48→08:29)
[2021-06-22] MEDS: methylPREDNISolone 125 MG/2 ML VIAL IVP SCH (02:19)
[2021-06-22 04:19] LABS: Hematocrit 43.3 % (35.3-44.9); Hemoglobin 14.1 g/dL (11.5-15.4); Mean Corpuscular HGB Conc 32.6 g/dL (31.6-35.5); Mean Corpuscular Hemoglobin 30.7 pg (28.0-33.3); Mean Corpuscular Volume 94.1 fL (83.0-100.0); Mean Platelet Volume 10.9 fL (9.4-12.4); Platelet Count 101 K/mcL (140-400); Red Cell Distribution Width 13.9 % (11.5-14.5); White Blood Count 3.1 K/mcL (4.3-11.1)
[2021-06-22 05:51] LABS: BUN/Creatinine Ratio 44 (6-26); Blood Urea Nitrogen 24 mg/dL (6-20); Carbon Dioxide 41 mEq/L (23-29); Chloride 92 mEq/L (98-107); Glucose 337 mg/dL (70-105); Osmolality,Calculated 307 (280-300); Potassium 4.1 mEq/L (3.5-5.1); Sodium 140 mEq/L (136-145); eGFR For African Americans > 60 (> 60); eGFR For Non-African Americans > 60 (> 60)
[2021-06-22 07:49] VITALS: BP 146/82; PULSE 69; RESP 18; TEMP 97.9; O2SAT 95
[2021-06-22] MEDS ORDERED: cefTRIAXone 1,000 MG in 0.9 % Sodium Chloride Mini Bag 100 ML IVPB SCH (09:00)
== END 2021-06-22 12:10 | disposition left against medical advice (07) ==
LOC: EMEROOPIK 23:18 → INPPIK 23:18
PROVIDERS: ADMIT Family Medicine; ATTEND Family Medicine